=== PATIENT | male | born 2000 | race Caucasian/White ===

== ENCOUNTER 2022-12-27 21:05 | Emergency (ER) | payer BC, SELFPAY ==
[2022-12-27 21:40] VITALS: BP 142/112; PULSE 100; RESP 18; TEMP 36.5; O2SAT 97; BMI 25.8
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
[2022-12-27] MEDS: ONDANSETRON 2 MG/ML inj 4 MG IVP (21:54)
[2022-12-27] MEDS: MORPHINE 4 MG/ML INJ IVP ×2 (21:55→23:40)
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
== END 2022-12-28 00:32 | disposition home or self-care (01) ==
PROVIDERS: Emergency Provider Family Medicine
DX: S01.01XA Laceration without foreign body of scalp, initial encounter (principal); W17.89XA Other fall from one level to another, initial encounter; X02.0XXA Exposure to flames in controlled fire in building or structure, initial encounter; T24.202A Burn of second degree of unspecified site of left lower limb, except ankle and foot, initial encounter; T24.201A Burn of second degree of unspecified site of right lower limb, except ankle and foot, initial encounter
CPT/HCPCS: 12001; 70450; 96374; 96375; 96376; 99284; 99291; A9270; J2270; J2405